=== PATIENT | female | born 1960 | race Caucasian/White ===

== ENCOUNTER 2018-03-24 05:13 | Inpatient (IN) | payer MEDICAID ==
[~2018-03-24] VITALS: Ht 157.5 cm; Wt 81.2 kg
[2018-03-24] VITALS (57 sets, daily range): BP systolic 103–133; BP diastolic 50–79
[2018-03-24] MEDS ORDERED: GELATIN SPONGE,ABSORBABLE 12-7MM SPONGE ONE (06:25)
[2018-03-24] MEDS ORDERED: LIDOCAINE HCL/EPINEPHRINE 1%-EPI 1:100,000 20 ML VIAL ONE (06:26)
[2018-03-24] MEDS ORDERED: NORMAL SALINE 0.9% 10 ML SYR ONE (06:26)
[2018-03-24] MEDS ORDERED: THROMBIN (BOVINE) 5000 UNITS/VIAL TOP ONE (06:26)
[2018-03-24] MEDS ORDERED: BACITRACIN 50,000 UNITS/VIAL ONE (06:27)
[2018-03-24] MEDS ORDERED: FENTANYL CITRATE/PF 50MCG/ML 5ML VIAL ONE (06:35)
[2018-03-24] MEDS ORDERED: MIDAZOLAM HCL 2 MG/2 ML VIAL ONE (06:35)
[2018-03-24] MEDS ORDERED: PROPOFOL 200MG/20ML VIAL IV ONE (06:35)
[2018-03-24] MEDS ORDERED: ROCURONIUM BROMIDE 10MG/ML VIAL 5ML IV ONE ×2 (06:35→08:04)
[2018-03-24] MEDS ORDERED: HYDROMORPHONE HCL/PF 2MG/ML (OR) ONE (06:35)
[2018-03-24 06:36] LABS: BASOPHILS % 0.7 % (0.0-2.0); EOSINOPHILS % 1.7 % (0.0-5.0); HEMOGLOBIN. 13.7 g/dL (12.0-16.0); LYMPHOCYTES % 29.7 % (20.0-50.0); MEAN CORPUSCULAR HEMOGLOBIN 29.2 pg (28.0-32.0); MEAN CORPUSCULAR VOLUME 85.4 fL (81.0-99.0); MEAN PLATELET VOLUME 8.7 fl (7.4-10.4); MONOCYTES % 4.8 % (2.0-8.0); NEUTROPHILS % 63.1 % (40.0-76.0); PLATELET 326 x1000/uL (130-400); RED BLOOD CELL COUNT 4.69 mill/uL (4.2-5.4); RED CELL DISTRIBUTION WIDTH 14.3 % (11.6-14.6)
[2018-03-24 06:38] LABS: CLARITY URINE CLEAR (CLEAR); COLOR URINE YELLOW (YELLOW); KETONES URINE NEGATIVE (NEGATIVE); LEUKOCYTE ESTERASE URINE 1+ (NEGATIVE); NITRITE URINE NEGATIVE (NEGATIVE); OCCULT BLOOD URINE NEGATIVE (NEGATIVE); PROTEIN URINE NEGATIVE (NEGATIVE); SPECIFIC GRAVITY URINE 1.013 (1.005-1.030)
[2018-03-24 06:40] LABS: CHLORIDE 107 mEq/L (98-107)
[2018-03-24 06:54] LABS: PARTIAL THROMBOPLASTIN TIME 29.7 sec (23.4-31.0); PROTHROMBIN TIME 10.2 sec (9.1-11.1)
[2018-03-24] MEDS ORDERED: INSU100V34 SQ (07:57)
[2018-03-24] MEDS ORDERED: INSU100I24 SQ (07:57)
[2018-03-24] MEDS ORDERED: ATOR10TA69 PO (07:57)
[2018-03-24] MEDS ORDERED: BENA10TA10 PO (07:57)
[2018-03-24] MEDS ORDERED: MULT-1116 PO (07:57)
[2018-03-24] MEDS ORDERED: METF-416 PO (07:57)
[2018-03-24] MEDS ORDERED: ASPI-1158 PO (07:57)
[2018-03-24] MEDS ORDERED: CALC-1042 PO (07:58)
[2018-03-24] MEDS ORDERED: SODIUM CHLORIDE 0.9% 10ML VIAL ONE (09:22)
[2018-03-24] MEDS ORDERED: CEFAZOLIN SODIUM 1000MG/VIAL ONE (09:22)
[2018-03-24] MEDS ORDERED: ONDANSETRON HCL 4MG/2ML INJ ONE (09:22)
[2018-03-24] MEDS ORDERED: PHENYLEPHRINE HCL 10 MG/ML 1ML (IV VIAL) IV ONE (09:22)
[2018-03-24] MEDS ORDERED: GLYCOPYRROLATE 0.2 MG/ML 2ML VIAL ONE ×2 (09:23→09:24)
[2018-03-24] MEDS ORDERED: NEOSTIGMINE METHYLSULFATE 1MG/ML 10 ML VIAL ONE (09:23)
[2018-03-24] MEDS ORDERED: NICARDIPINE 100 MG in SODIUM CHLORIDE 0.9% 60 ML IV PRN (09:45)
[2018-03-24] MEDS ORDERED: ONDANSETRON HCL 4MG/2ML INJ IV PRN (09:45)
[2018-03-24] MEDS ORDERED: DEXTROSE 50% WATER 50ML SYRINGE IV PRN (10:30)
[2018-03-24] MEDS ORDERED: IPRATROPIUM/ALBUTEROL 0.5-3(2.5)MG/3ML NEB HHN PRN (11:30)
[2018-03-24] MEDS ORDERED: BISACODYL 5MG TABLET PO PRN (11:30)
[2018-03-24] MEDS ORDERED: DEXT 5%/LACTATED RINGERS 1,000 ML IV SCH (11:37)
[2018-03-24] MEDS ORDERED: SODIUM CHLORIDE 0.9% 1,000 ML IV SCH (11:43)
[2018-03-24] MEDS ORDERED: INSULIN LISPRO 100 UNITS/ML SUBCUT SCH (12:00)
[2018-03-24] MEDS ORDERED: DIPHENHYDRAMINE INJ IV PRN (12:00)
[2018-03-24] MEDS ORDERED: NALOXONE INJ IV PRN (12:00)
[2018-03-24] MEDS ORDERED: ONDANSETRON INJ IV PRN (12:00)
[2018-03-24] MEDS: BLOOD SUGAR DIAGNOSTIC STRIP TEST SCH ×3 (12:20→20:51)
[2018-03-24] MEDS: HYDROMORPHONE PCA 10MG/50ML IV PRN (13:26)
[2018-03-24] MEDS ORDERED: CEFAZOLIN SODIUM 1000MG/VIAL IV SCH (14:00)
[2018-03-24] MEDS ORDERED: DOCUSATE SODIUM 100MG CAPSULE PO SCH (17:00)
[2018-03-24] MEDS: CEFAZOLIN 1000MG PREMIX 50 ML IV SCH (17:49)
[2018-03-24] MEDS: DOCUSATE SODIUM 100MG CAPSULE PO SCH (17:49)
[2018-03-24] MEDS: INSULIN LISPRO 100 UNITS/ML SUBCUT SCH ×2 (17:51→21:03)
[2018-03-24] MEDS: SODIUM CHLORIDE 0.9% 1,000 ML IV SCH (20:22)
[2018-03-24] MEDS ORDERED: BLOOD SUGAR DIAGNOSTIC STRIP TEST SCH (21:00)
[2018-03-25] VITALS (73 sets, daily range): BP systolic 99–149; BP diastolic 47–83
[2018-03-25] MEDS: CEFAZOLIN 1000MG PREMIX 50 ML IV SCH ×3 (01:13→17:13)
[2018-03-25] MEDS: SODIUM CHLORIDE 0.9% 1,000 ML IV SCH ×3 (04:00→23:57)
[2018-03-25 05:25] LABS: CHLORIDE 110 mEq/L (98-107)
[2018-03-25 05:26] LABS: BASOPHILS % 0.4 % (0.0-2.0); EOSINOPHILS % 0.5 % (0.0-5.0); HEMATOCRIT. 32.1 % (36.0-48.0); HEMOGLOBIN. 10.9 g/dL (12.0-16.0); LYMPHOCYTES % 21.3 % (20.0-50.0); MEAN CORPUSCULAR HEMOGLOBIN 29.1 pg (28.0-32.0); MEAN CORPUSCULAR VOLUME 85.5 fL (81.0-99.0); MEAN PLATELET VOLUME 8.6 fl (7.4-10.4); MONOCYTES % 6.8 % (2.0-8.0); PLATELET 273 x1000/uL (130-400); RED BLOOD CELL COUNT 3.76 mill/uL (4.2-5.4); RED CELL DISTRIBUTION WIDTH 14.4 % (11.6-14.6)
[2018-03-25] MEDS: INSULIN LISPRO 100 UNITS/ML SUBCUT SCH ×4 (06:02→20:38)
[2018-03-25] MEDS: BLOOD SUGAR DIAGNOSTIC STRIP TEST SCH ×4 (06:02→20:27)
[2018-03-25] MEDS: DOCUSATE SODIUM 100MG CAPSULE PO SCH ×2 (08:37→17:14)
[2018-03-25] MEDS ORDERED: POTASSIUM CHLORIDE 20MEQ TABLET SR PO NR (09:30)
[2018-03-25] MEDS ORDERED: POTASSIUM CHLORIDE 20MEQ/PACKET PO NR (11:00)
[2018-03-25] MEDS ORDERED: CYCLOBENZAPRINE 10MG TABLET PO PRN (16:45)
[2018-03-25] MEDS: ACETAMINOPHEN 325MG TABLET PO PRN ×2 (17:14→23:55)
[2018-03-26] VITALS: BP 145/75
[2018-03-26] MEDS: CEFAZOLIN 1000MG PREMIX 50 ML IV SCH ×3 (01:22→18:35)
[2018-03-26] MEDS: SODIUM CHLORIDE 0.9% 1,000 ML IV SCH ×3 (03:30→20:45)
[2018-03-26 04:00] VITALS: BP 131/70
[2018-03-26] MEDS: BLOOD SUGAR DIAGNOSTIC STRIP TEST SCH ×4 (06:17→20:45)
[2018-03-26 07:44] LABS: BASOPHILS % 0.6 % (0.0-2.0); EOSINOPHILS % 0.7 % (0.0-5.0); HEMATOCRIT. 31.7 % (36.0-48.0); HEMOGLOBIN. 10.7 g/dL (12.0-16.0); LYMPHOCYTES % 22.5 % (20.0-50.0); MEAN CORPUSCULAR HEMOGLOBIN 29.2 pg (28.0-32.0); MEAN CORPUSCULAR VOLUME 86.5 fL (81.0-99.0); MEAN PLATELET VOLUME 8.9 fl (7.4-10.4); MONOCYTES % 7.9 % (2.0-8.0); NEUTROPHILS % 68.3 % (40.0-76.0); PLATELET 249 x1000/uL (130-400); RED BLOOD CELL COUNT 3.67 mill/uL (4.2-5.4); RED CELL DISTRIBUTION WIDTH 14.5 % (11.6-14.6)
[2018-03-26] MEDS: INSULIN LISPRO 100 UNITS/ML SUBCUT SCH ×4 (07:50→21:32)
[2018-03-26 08:00] VITALS: BP 130/71
[2018-03-26 08:08] LABS: CHLORIDE 108 mEq/L (98-107)
[2018-03-26] MEDS: DOCUSATE SODIUM 100MG CAPSULE PO SCH ×2 (09:53→16:28)
[2018-03-26 12:00] VITALS: BP 127/66
[2018-03-26 16:00] VITALS: BP 167/80
[2018-03-26] MEDS: ACETAMINOPHEN 325MG TABLET PO PRN (16:28)
[2018-03-26] MEDS: HYDROMORPHONE PCA 10MG/50ML IV PRN (18:39)
[2018-03-26 20:00] VITALS: BP 124/75
[2018-03-27] VITALS (7 sets, daily range): BP systolic 114–141; BP diastolic 64–71
[2018-03-27] MEDS: HYDROCODONE/APAP 7.5/325MG 1 TAB TABLET PO PRN ×4 (00:51→21:34)
[2018-03-27] MEDS: SODIUM CHLORIDE 0.9% 1,000 ML IV SCH (05:31)
[2018-03-27 07:07] LABS: BASOPHILS % 0.5 % (0.0-2.0); EOSINOPHILS % 0.4 % (0.0-5.0); HEMATOCRIT. 29.8 % (36.0-48.0); HEMOGLOBIN. 10.4 g/dL (12.0-16.0); LYMPHOCYTES % 16.8 % (20.0-50.0); MEAN CORPUSCULAR HEMOGLOBIN 29.6 pg (28.0-32.0); MEAN CORPUSCULAR VOLUME 84.7 fL (81.0-99.0); MONOCYTES % 6.7 % (2.0-8.0); NEUTROPHILS % 75.6 % (40.0-76.0); PLATELET 271 x1000/uL (130-400); RED BLOOD CELL COUNT 3.52 mill/uL (4.2-5.4); RED CELL DISTRIBUTION WIDTH 14.3 % (11.6-14.6)
[2018-03-27 07:09] LABS: CHLORIDE 107 mEq/L (98-107)
[2018-03-27] MEDS: BLOOD SUGAR DIAGNOSTIC STRIP TEST SCH ×4 (07:38→21:13)
[2018-03-27] MEDS: DOCUSATE SODIUM 100MG CAPSULE PO SCH ×2 (08:20→17:29)
[2018-03-27] MEDS: INSULIN LISPRO 100 UNITS/ML SUBCUT SCH ×4 (08:22→21:43)
[2018-03-27] MEDS: POLYETHYLENE GLYCOL 3350 (17GM) 1 DOSE PACK PO PRN (17:29)
[2018-03-28] VITALS: BP 118/70
[2018-03-28 04:30] VITALS: BP 134/82
[2018-03-28] MEDS: BLOOD SUGAR DIAGNOSTIC STRIP TEST SCH ×4 (06:41→21:48)
[2018-03-28 07:59] LABS: BASOPHILS % 0.5 % (0.0-2.0); EOSINOPHILS % 2.6 % (0.0-5.0); HEMATOCRIT. 30.9 % (36.0-48.0); HEMOGLOBIN. 10.8 g/dL (12.0-16.0); LYMPHOCYTES % 18.2 % (20.0-50.0); MEAN CORPUSCULAR HEMOGLOBIN 29.6 pg (28.0-32.0); MEAN CORPUSCULAR VOLUME 84.8 fL (81.0-99.0); MEAN PLATELET VOLUME 8.8 fl (7.4-10.4); MONOCYTES % 6.2 % (2.0-8.0); NEUTROPHILS % 72.5 % (40.0-76.0); PLATELET 329 x1000/uL (130-400); RED BLOOD CELL COUNT 3.64 mill/uL (4.2-5.4); RED CELL DISTRIBUTION WIDTH 14.2 % (11.6-14.6)
[2018-03-28 08:00] VITALS: BP 118/69
[2018-03-28 08:10] LABS: CHLORIDE 102 mEq/L (98-107)
[2018-03-28] MEDS: DOCUSATE SODIUM 100MG CAPSULE PO SCH ×2 (08:53→17:18)
[2018-03-28] MEDS: HYDROCODONE/APAP 7.5/325MG 1 TAB TABLET PO PRN ×3 (08:53→22:35)
[2018-03-28] MEDS: INSULIN LISPRO 100 UNITS/ML SUBCUT SCH ×3 (08:54→17:19)
[2018-03-28] MEDS ORDERED: BISACODYL 10MG SUPP PR NR (10:00)
[2018-03-28] MEDS ORDERED: BISACODYL 5MG TABLET PO NR (10:00)
[2018-03-28] MEDS: POLYETHYLENE GLYCOL 3350 (17GM) 1 DOSE PACK PO PRN (10:46)
[2018-03-28 12:00] VITALS: BP 114/71
[2018-03-28 16:00] VITALS: BP 97/58
[2018-03-28 20:00] VITALS: BP 130/73
[2018-03-29] VITALS: BP 124/70
[2018-03-29] MEDS: INSULIN LISPRO 100 UNITS/ML SUBCUT SCH ×2 (02:39→10:02)
[2018-03-29 04:00] VITALS: BP 124/74
[2018-03-29 06:08] LABS: BASOPHILS % 0.7 % (0.0-2.0); EOSINOPHILS % 3.1 % (0.0-5.0); HEMATOCRIT. 31.4 % (36.0-48.0); HEMOGLOBIN. 10.9 g/dL (12.0-16.0); LYMPHOCYTES % 29.9 % (20.0-50.0); MEAN CORPUSCULAR HEMOGLOBIN 29.4 pg (28.0-32.0); MEAN CORPUSCULAR VOLUME 84.8 fL (81.0-99.0); MEAN PLATELET VOLUME 8.9 fl (7.4-10.4); MONOCYTES % 6.7 % (2.0-8.0); NEUTROPHILS % 59.6 % (40.0-76.0); PLATELET 360 x1000/uL (130-400); RED CELL DISTRIBUTION WIDTH 14.2 % (11.6-14.6)
[2018-03-29] MEDS: BLOOD SUGAR DIAGNOSTIC STRIP TEST SCH (06:39)
[2018-03-29] MEDS: HYDROCODONE/APAP 7.5/325MG 1 TAB TABLET PO PRN (06:57)
[2018-03-29 08:00] VITALS: BP 142/78
[2018-03-29] MEDS ORDERED: SORBITOL 70% SOLN 30ML PO SCH (08:00)
[2018-03-29] MEDS ORDERED: NA PHOS,M-B/NA PHOS,DI-BA ENEMA 118ML PR SCH (08:00)
[2018-03-29 08:01] LABS: CHLORIDE 101 mEq/L (98-107)
[2018-03-29] MEDS: DOCUSATE SODIUM 100MG CAPSULE PO SCH (09:46)
[2018-03-29 12:01] VITALS: BP 134/66
[2018-03-29 15:17] VITALS: BP 134/66
[2018-03-29 16:28] VITALS: BP 127/64
== END 2018-03-29 15:55 | disposition home or self-care (01) | DRG 304 ==
LOC: OR 05:13 → MICUSO 05:14 → 6EST 03-25 18:40
PROVIDERS: ADMIT Neurological Surgery; ATTEND Internal Medicine
PROC: 0SG3071 Fusion of Lumbosacral Joint with Autologous Tissue Substitute, Posterior Approach, Posterior Column, Open Approach (ICD-10-PCS; principal; 2018-03-24)
PROC: 0ST40ZZ Resection of Lumbosacral Disc, Open Approach (ICD-10-PCS; 2018-03-24)
PROC: 4A11X4G Monitoring of Peripheral Nervous Electrical Activity, Intraoperative, External Approach (ICD-10-PCS; 2018-03-24)
PROC: 0SG30AJ Fusion of Lumbosacral Joint with Interbody Fusion Device, Posterior Approach, Anterior Column, Open Approach (ICD-10-PCS; 2018-03-24)
DX: M43.17 Spondylolisthesis, lumbosacral region (principal); G82.50 Quadriplegia, unspecified; M47.16 Other spondylosis with myelopathy, lumbar region; E83.51 Hypocalcemia; E11.9 Type 2 diabetes mellitus without complications; D72.829 Elevated white blood cell count, unspecified; F32.9 Major depressive disorder, single episode, unspecified; I10 Essential (primary) hypertension; R26.2 Difficulty in walking, not elsewhere classified; J44.9 Chronic obstructive pulmonary disease, unspecified; J98.11 Atelectasis
CPT/HCPCS: 36415; 71045; 72100; 80048; 82962; 88304; 88311; 95863; 95925; 95926; 95928; 95929; 97116; 97162; 97166; 97530; 97535; 97760; C1713; J0690; J1170; J1815; J2250; J2370; J2405; J2704; J2710; J3010; J3490; J7030; J7121; J7620